=== PATIENT | male | born 1975 | race Hispanic/Latino ===

== ENCOUNTER 2018-08-04 00:41 | Emergency (ER) | payer SELFPAY ==
[2018-08-04] MEDS ORDERED: HYDROcodone/Acetaminophen 10/325 mg Tablet ONE (02:53)
--- NOTE | 2018-08-04 07:50 | RAD ---
LEFT RIBS 3 VIEWS: INDICATION: The patient fell in the garden yesterday with report of back pain. FINDINGS: There is a mildly displaced posterior left 9th rib fracture. No additional displaced rib fracture is evident. Visualized left lung is clear. No pneumothorax is evident. Visualized left lung is clear . IMPRESSION: Mildly displaced left posterior 9th rib fracture. No pneumothorax demonstrated. POS: BH
== END 2018-08-04 03:05 | disposition home or self-care (01) ==
LOC: ERS 00:41
DX: R07.81 Pleurodynia (principal); F90.9 Attention-deficit hyperactivity disorder, unspecified type; Z86.718 Personal history of other venous thrombosis and embolism; Z87.891 Personal history of nicotine dependence; W22.8XXA Striking against or struck by other objects, initial encounter
CPT/HCPCS: 94799